=== PATIENT | male | born 1970 | race Hispanic/Latino ===

== ENCOUNTER → 2024-12-15 | Day surgery (SDC) | payer BC ==
[~2024-12-15] MED LIST: BUPROPION XL150 MG PO; CITALOPRAM HBR20 MG PO; HYDROCHLOROTHIA25 MG PO; LIDOCAINE HCL 2% LOCAL INJ 5 ML SDV VIAL INJ ONE; MIDAZOLAM HCL 2 MG/2 ML VIAL ONE; PROPOFOL IV EMULSION 10 MG/ML 20 ML VIAL ONE; ROSUVASTATIN CAL5 MG PO; VYVANSE70 MG PO
[2024-12-15] MEDS: LACTATED RINGER'S 1,000 ML ONE (08:54)
[2024-12-15 11:21] VITALS: TEMP 99.6
[2024-12-15 11:50] VITALS: BP 118/75; PULSE 55; RESP 16; O2SAT 98
== END | disposition home or self-care (01) ==
LOC: OR 08:24
PROVIDERS: ATTEND Internal Medicine Gastroenterology
DX: Z12.11 Encounter for screening for malignant neoplasm of colon (principal); D12.2 Benign neoplasm of ascending colon; D12.3 Benign neoplasm of transverse colon; D12.5 Benign neoplasm of sigmoid colon; K64.8 Other hemorrhoids; G47.33 Obstructive sleep apnea (adult) (pediatric); I10 Essential (primary) hypertension; E78.5 Hyperlipidemia, unspecified; F90.9 Attention-deficit hyperactivity disorder, unspecified type; F41.9 Anxiety disorder, unspecified; Z79.899 Other long term (current) drug therapy; Z68.33 Body mass index [BMI] 33.0-33.9, adult
CPT/HCPCS: 45384; 45385; 93005; J2003; J2250; J2704; J7121